=== PATIENT | female | born 1990 | race Caucasian/White ===

== ENCOUNTER 2023-02-10 06:14 | Inpatient (IN) | payer OTHER ==
[2023-02-10] MEDS ORDERED: NS w/ Oxytocin 30 units 500 ML ONE (07:44)
[2023-02-10] MEDS ORDERED: Promethazine HCl 25 MG/ML VIAL IM PRN ×3 (08:14→19:22)
[2023-02-10] MEDS ORDERED: fentaNYL 50 mcg/mL 1 mL Vial SLOW IVP PRN (08:14)
[2023-02-10] MEDS ORDERED: Ibuprofen 800 MG TAB PO PRN (08:14)
[2023-02-10] MEDS ORDERED: hydrALAZINE 20 MG/ML VIAL SLOW IVP PRN ×2 (08:14→23:19)
[2023-02-10] MEDS ORDERED: NS w/ Oxytocin 30 units 500 ML IV SCH ×4 (08:14→23:19)
[2023-02-10] MEDS ORDERED: Lidocaine 1% (PF) 30 ML VIAL SC PRN (08:14)
[2023-02-10] MEDS ORDERED: HYDROcodone/Acetaminophen 5/325 mg Tablet PO PRN ×2 (08:14)
[2023-02-10] MEDS ORDERED: Ondansetron PF 4 MG/2 ML Vial IVP PRN ×4 (08:14→23:19)
[2023-02-10] MEDS ORDERED: Lactated Ringer's 1,000 ML IV SCH (08:14)
[2023-02-10 08:42] VITALS: BMI 30.1
[2023-02-10 08:45] LABS: Hematocrit 37.8 % (34.9-44.5); Mean Corpuscular HGB CONC 34.4 g/dL (32.0-36.0); Mean Corpuscular Hemoglobin 32.5 pg (27.0-33.0); Mean Corpuscular Volume 94.5 fl (81.6-98.3); Mean Platelet Volume 9.9 fl (7.4-10.4); Platelet Count 136 10x3/uL (150-450); RBC Distribution Width 13.2 % (11.5-14.5)
[2023-02-10 09:42] LABS: Syphilis Antibody Nonreactive (Nonreactive); Syphilis Antibody Index 0.05 S/CO (<1.00 Non-Reactive)
[2023-02-10 09:43] LABS: HBSAg Index 0.17 S/CO (0-0.99); Hep B Surf Ag - L&D Non-Reactive S/CO (NonReactive)
[2023-02-10] MEDS ORDERED: fentaNYL/Ropivacaine Epidural 100 ML ONE (10:50)
[2023-02-10] MEDS ORDERED: diphenhydrAMINE 50 MG/ML VIAL IVP PRN ×2 (11:45→19:22)
[2023-02-10] MEDS ORDERED: Lactated Ringer's 500 ML IV PRN (11:45)
[2023-02-10] MEDS ORDERED: Communication Order-Pharmacy FS SCH ×2 (11:45→19:30)
[2023-02-10] MEDS ORDERED: Acetaminophen 325 MG TAB PO PRN (11:45)
[2023-02-10] MEDS ORDERED: Moisturizing Cream (Eucerin) 113 GM JAR TOP PRN ×2 (11:45→19:22)
[2023-02-10] MEDS ORDERED: ePHEDrine Sulfate 50 MG/10 ML VIAL SLOW IVP PRN (11:45)
[2023-02-10] MEDS ORDERED: Naloxone HCl 0.4 mg/ml Vial IVP PRN ×4 (11:45→19:22)
[2023-02-10] MEDS ORDERED: fentaNYL 2 mcg/Ropivacaine 0.2% Epidural 100 ML CADD EPIDURAL SCH (11:45)
[2023-02-10] MEDS ORDERED: Bupivacaine 0.25% HCL 30 ML VIAL ONE (18:00)
[2023-02-10] MEDS ORDERED: ePHEDrine Sulfate 50 MG/10 ML VIAL ONE (18:00)
[2023-02-10] MEDS ORDERED: Azithromycin 500 MG VIAL ONE (18:50)
[2023-02-10] MEDS ORDERED: CEFAZOLIN 2 GM VIAL ONE (18:50)
[2023-02-10] MEDS ORDERED: Famotidine/PF 20 mg/2ml Vial SLOW IVP PRN (18:53)
[2023-02-10] MEDS ORDERED: Bicitra 30 ML UDCUP PO PRN (18:53)
[2023-02-10] MEDS ORDERED: CEFAZOLIN 2 GM in Sodium Chloride 0.9% 100 ML IVPB SCH (19:00)
[2023-02-10] MEDS ORDERED: fentaNYL 50 mcg/mL 1 mL Vial ONE ×2 (19:21→21:34)
[2023-02-10] MEDS ORDERED: Morphine PF 10 MG/10 ML VIAL ONE (19:21)
[2023-02-10] MEDS ORDERED: Naloxone HCl 0.4 mg/ml Vial IV PRN (19:22)
[2023-02-10] MEDS ORDERED: Promethazine HCl 25 MG SUPP PR PRN (19:22)
[2023-02-10] MEDS ORDERED: Ketorolac Tromethamine 30 MG/ML VIAL IVP PRN ×2 (19:22→23:54)
[2023-02-10] MEDS ORDERED: Phenylephrine 40 MG/NS 250 ML 250 ML ONE (20:09)
[2023-02-10] MEDS ORDERED: Ondansetron PF 4 MG/2 ML Vial ONE (20:09)
[2023-02-10] MEDS ORDERED: Oxytocin 10 UNITS/ML VIAL ONE (20:09)
[2023-02-10] MEDS ORDERED: Dexamethasone 4 mg/ml Vial ONE (20:09)
[2023-02-10] MEDS ORDERED: Ketorolac Tromethamine 30 MG/ML VIAL ONE (20:09)
[2023-02-10] MEDS ORDERED: Lidocaine 2% MPF 10 ML AMP (For Epidural Use) ONE (20:10)
[2023-02-10] MEDS ORDERED: Ondansetron HCl/PF 4 MG/2 ML Vial IVP PRN (20:30)
[2023-02-10] MEDS ORDERED: Fentanyl 50 MCG/1 ML VIAL SLOW IVP PRN (20:30)
[2023-02-10] MEDS ORDERED: Meperidine HCl/PF 25 MG/ML VIAL SLOW IVP PRN (20:30)
[2023-02-10] MEDS ORDERED: Ketorolac Tromethamine 30 MG/ML VIAL IVP SCH (20:30)
[2023-02-10] MEDS ORDERED: Simethicone Chewable 80 MG TAB PO PRN (23:19)
[2023-02-10] MEDS ORDERED: Boostrix 0.5 ML (Tdap) VIAL (>/=7 yrs of age) IM ONE (23:19)
[2023-02-10] MEDS ORDERED: Lanolin Ointment 7 GM TUBE TOP PRN (23:19)
[2023-02-10] MEDS ORDERED: Bisacodyl 10 MG SUPP PR PRN (23:19)
[2023-02-10] MEDS ORDERED: diphenhydrAMINE 25 MG CAP PO PRN (23:19)
[2023-02-11 04:23] LABS: Hematocrit 30.7 % (34.9-44.5); Hemoglobin 10.6 g/dL (12.0-15.5); Mean Corpuscular HGB CONC 34.5 g/dL (32.0-36.0); Mean Corpuscular Hemoglobin 32.5 pg (27.0-33.0); Mean Corpuscular Volume 94.2 fl (81.6-98.3); Mean Platelet Volume 10.2 fl (7.4-10.4); Platelet Count 129 10x3/uL (150-450); Red Blood Cell (RBC) Count 3.26 10x6/uL (3.90-5.03); White Blood Cell (WBC) Count 11.5 10x3/uL (3.5-10.5)
[2023-02-11] MEDS ORDERED: Ibuprofen 800 MG TAB PO SCH (06:00)
[2023-02-11] MEDS: HYDROcodone/Acetaminophen 5/325 mg Tablet PO PRN ×4 (08:33→21:04)
[2023-02-11] MEDS: Docusate 100 MG CAP PO SCH ×2 (08:34→21:03)
[2023-02-11] MEDS: Prenatal Vitamin 1 TAB PO SCH (08:34)
[2023-02-11] MEDS: Ferrous Sulfate 325 MG TAB PO SCH ×2 (09:10→21:05)
[2023-02-11] MEDS: Ibuprofen 800 MG TAB PO SCH ×2 (14:11→21:03)
[2023-02-12] MEDS ORDERED: Ibuprofen 800 MG TAB PO PRN (01:00)
[2023-02-12] MEDS: HYDROcodone/Acetaminophen 5/325 mg Tablet PO PRN ×4 (01:07→13:01)
[2023-02-12] MEDS: Ibuprofen 800 MG TAB PO SCH ×2 (05:30→14:32)
[2023-02-12] MEDS: Ferrous Sulfate 325 MG TAB PO SCH (07:10)
[2023-02-12] MEDS: Prenatal Vitamin 1 TAB PO SCH (08:10)
[2023-02-12] MEDS: Docusate 100 MG CAP PO SCH (08:10)
[2023-02-12 11:31] VITALS: BP 112/68; TEMP 97.9
== END 2023-02-12 15:20 | disposition home or self-care (01) | DRG 788 ==
LOC: CSHLD 06:14 → CSHPP 22:35
PROVIDERS: ADMIT Obstetrics & Gynecology; ATTEND Obstetrics & Gynecology
PROC: 10D00Z1 Extraction of Products of Conception, Low, Open Approach (ICD-10-PCS; principal; 2023-02-10)
PROC: 3E033VJ Introduction of Other Hormone into Peripheral Vein, Percutaneous Approach (ICD-10-PCS; 2023-02-10)
DX: O32.3XX0 Maternal care for face, brow and chin presentation, not applicable or unspecified (principal); O36.63X0 Maternal care for excessive fetal growth, third trimester, not applicable or unspecified; O76 Abnormality in fetal heart rate and rhythm complicating labor and delivery; Z3A.39 39 weeks gestation of pregnancy; Z37.0 Single live birth
CPT/HCPCS: 36415; 51702; 85027; 86780; 86850; 86900; 86901; 87340; J0456; J1100; J1885; J2274; J2405; J2590; J3010; S0020